=== PATIENT | female | born 1980 | race Caucasian/White ===

== ENCOUNTER 2018-10-23 15:11 | Emergency (ER) | payer OTHER ==
[~2018-10-23] VITALS: Ht 167.6 cm; Wt 95.3 kg
[2018-10-23 15:48] LABS: ABSOLUTE NEUTROPHILS 5.9 thou/uL (1.4-8.2); BASOPHILS 0.6 % (0.0-2.0); EOSINOPHILS 0.6 % (0.0-3.0); HEMATOCRIT 40.3 % (37.0-47.0); HEMOGLOBIN 13.6 gm/dL (12.0-15.0); LYMPHOCYTES 31.3 % (24.0-44.0); MCH 28.8 pg (26.0-34.0); MCHC 33.7 g/dL (28.0-37.0); MCV 85.5 fL (80.0-100.0); MONOCYTES 4.1 % (1.0-8.0); PLATELET COUNT 354 thou/uL (150-400); POLYS 63.4 % (36.0-66.0); RBC 4.72 mil/uL (4.20-5.00); RDW 13.9 % (10.5-14.5); WBC 9.3 thou/uL (4.0-11.0)
[2018-10-23 15:55] LABS: ANION GAP 15 mmol/L (7-16); BUN 10 mg/dL (7-18); CALCIUM 9.7 mg/dL (8.5-10.1); CHLORIDE 103 mmol/L (98-107); CO2 21 mmol/L (21-32); CREATININE 0.9 mg/dL (0.6-1.0); GLUCOSE 126 mg/dL (74-106); POTASSIUM 3.4 mmol/L (3.5-5.1); SODIUM 139 mmol/L (136-145)
[2018-10-23 16:03] LABS: TROPONIN-I <0.06 ng/mL (<0.06)
[2018-10-23 16:27] VITALS: BP 102/74
--- NOTE | 2018-10-24 01:02 | EKG ---
[place] [address] [address] [facility] [place] [address] ELECTROCARDIOGRAM REPORT Name: VENITA HUSSEIN Room #: [facility] Khan#: [id number] ������������������ Admission: 10/23/18 ������������������ Attend Phys: Discharge: 10/23/18 ������������������ Date of : 76 Report #: [id number] ����������������������������������������������������������������� [id number] THIS REPORT FOR: //name// [facility] ED Test Date: 2018-10-23 Test Time: 15:25:35 Pat Name: VENITA HUSSEIN Department: Room: Gender: F Game Developer: LINDA : 1980 Requested By: Selvin Bhatia Order Number: [id number] MD: Damián Fuentes Measurements Intervals [place] Rate: 96 P: 40 OK: 175 QRS: 68 QRSD: 91 T: 23 QT: 358 QTc: 453 Interpretive Statements Sinus rhythm Poor R-wave progression Nonspecific ST/t wave changes No previous ECG available for comparison Electronically Signed On 10-24-2018 1:02:13 CDT by Damián Fuentes [email or web address] ��������������������������������������������� <ELECTRONICALLY SIGNED> ���������������������������������������� By: Damián Fuentes MD ��������������������������������������������� 10/24/18 0102 1525 1525 Damián Fuentes MD /TARYN
== END 2018-10-23 16:37 | disposition home or self-care (01) ==
LOC: ER 15:11
PROVIDERS: Emergency Medicine
DX: R07.9 Chest pain, unspecified (principal); F17.210 Nicotine dependence, cigarettes, uncomplicated

== ENCOUNTER 2019-05-13 12:15 | Emergency (ER) | payer OTHER ==
[~2019-05-13] VITALS: Ht 167.6 cm; Wt 90.7 kg
[2019-05-13 13:13] LABS: HEMATOCRIT 40.6 % (37.0-47.0); HEMOGLOBIN 13.3 gm/dL (12.0-15.0); MCH 27.8 pg (26.0-34.0); MCHC 32.8 g/dL (28.0-37.0); MCV 84.8 fL (80.0-100.0); RBC 4.78 mil/uL (4.20-5.00); RDW 14.4 % (10.5-14.5); WBC 15.1 thou/uL (4.0-11.0)
[2019-05-13 13:20] LABS: CALCIUM 9.6 mg/dL (8.5-10.1); CREATININE 1.1 mg/dL (0.6-1.0); POTASSIUM 3.4 mmol/L (3.5-5.1)
[2019-05-13] MEDS ORDERED: CEPACOL SORE T1 EAC8 PO (14:19)
[2019-05-13] MEDS ORDERED: AMOXICILLIN 50500 MG PO (14:19)
[2019-05-13 14:25] LABS: URINE BILIRUBIN NEGATIVE (Negative); URINE BLOOD 3+ (Negative); URINE CLARITY CLEAR; URINE COLOR YELLOW; URINE GLUCOSE-RANDOM* NEGATIVE (Negative); URINE KETONES NEGATIVE (Negative); URINE LEUKOCYTES-REFLEX TRACE (Negative); URINE NITRITE-REFLEX NEGATIVE (Negative); URINE PROTEIN (DIPSTICK) TRACE (Negative)
[2019-05-13 14:34] LABS: MUCUS >6 Heavy strn/LPF (None Seen)
[2019-05-13 14:35] LABS: SQUAMOUS >10 Many /LPF (0-3)
[2019-05-13 14:36] LABS: BACTERIA-REFLEX 1-9 Few /HPF (None Seen); CASTS None Seen /LPF (None Seen); CRYSTALS None Seen /LPF (None Seen); URINE RBC >20 Many /HPF (0-2); URINE WBC-REFLEX 6-15 Few /HPF (0-5)
[2019-05-13 15:05] VITALS: BP 108/68
== END 2019-05-13 15:54 | disposition home or self-care (01) ==
LOC: ER 12:15
PROVIDERS: Physician Assistant
DX: J02.9 Acute pharyngitis, unspecified (principal); H66.92 Otitis media, unspecified, left ear; R05 Cough